=== PATIENT | male | born 1980 | race Caucasian/White ===

== ENCOUNTER → 2020-02-07 11:14 | Outpatient (CLI) | payer OTHER, SELFPAY ==
[2014-02-07 23:21] VITALS: BMI 22.4
== END ==
PROVIDERS: PCP Student in an Organized Health Care Education/Training Program; Referring Provider Dermatology; Visit Provider Dermatology
DX: L02.821 Furuncle of head [any part, except face] (principal); C44.41 Basal cell carcinoma of skin of scalp and neck; L57.8 Other skin changes due to chronic exposure to nonionizing radiation
CPT/HCPCS: 87070; 87077; 87186; 87205

== ENCOUNTER → 2021-07-23 16:10 | Outpatient (CLI) | payer OTHER, SELFPAY | PROVIDERS: PCP Student in an Organized Health Care Education/Training Program; Visit Provider Family Medicine | DX: Z23 Encounter for immunization (principal) | CPT/HCPCS: 0004A; 91300 ==

== ENCOUNTER 2022-04-23 09:55 | Emergency (ER) | payer OTHER, SELFPAY ==
[2022-04-23 09:56] VITALS: BP 122/87; PULSE 83; RESP 16; TEMP 36.6; O2SAT 100; BMI 23.5
--- NOTE | 2022-04-23 10:09 | EX.ED.DYSGE1 ---
HPI History of Present Illness Chief Complaint: Rash Detail of Chief Complaint: Back pain, chest pain, and rash Informant: patient Onset/Context/Timing Onset: Days (4) Context: Sudden Onset Timing: Continuous Quality: Sharp Location: Right chest and back Worsened by: Nothing Relieved by: Advil Narrative Narrative: Patient presents with back pain and rash. Patient states that he started having pain in his back and right chest 4 days ago. Patient states that last night he noted a rash in this area. Patient states the rash has some blisters. Patient states he has been taking Advil with some relief. Patient states his pain is sharp and constant. Patient states it is over the right upper chest and into his back. Patient states it began rather suddenly. Patient denies any fevers or chills. Patient denies any shortness of breath or cough. PFSH PFSH Medical History no medical history no medical history Home Medications valacyclovir 1 gram tablet 1,000 mg PO Q8H #21 tabs 04/23/22 [Rx Last Taken Unknown] Allergy/AdvReac Type Severity Reaction Status Date / Time No Known Allergies Allergy Verified 02/07/14 23:20 Surgical History (Updated 04/23/22 @ 10:[address] Francisco Loco DO) History of herniorrhaphy Hx of hemorrhoidectomy Social History Smoking Status: Never smoker ROS ROS ED Constitutional Constitutional ED: Denies chills or fever(s) Eyes Eyes: Denies blurry vision or change in vision ENT ENT ED: Denies rhinorrhea or sore throat Cardiovascular Cardiovascular: Reports chest pain; Denies palpitations Respiratory/Chest Respiratory/Chest: Denies cough or dyspnea Gastrointestinal Gastrointestinal: Denies nausea or vomiting Genitourinary Genitourinary ED: Denies dysuria or hematuria Musculoskeletal Musculoskeletal: Reports back pain; Denies neck pain Integumentary Reports rash; Denies abscess Neurologic Neurologic: Denies headache(s) or weakness Allergic/Immunologic Allergic/Immunologic ED: Denies mouth swelling or urticaria EXAM Physical Exam Const Vital Signs: 04/23/22 09:56 Temperature 97.8 F Temperature Source Temporal Pulse Rate 83 Respiratory Rate 16 Blood Pressure 122/87 H Blood Pressure Mean 98 Pulse Ox 100 Oxygen Delivery Method Room Air Positive well nourished and well developed General Appearance ED: well developed and NAD HEENT Reports moist mucous membranes Neck supple and no JVD Extremity normal to inspection Neuro oriented x3, CN's II-XII intact bilaterally and no sensory deficits noted Sensorium / Orientation: alert Motor Exam: strength 5/5 throughout Psych mental status grossly normal Skin skin turgor normal Skin Narrative: There is then erythematous patchy rash over the right upper back and chest along the T5 dermatome. There are areas of vesicles noted. There is no discharge or drainage. There are no petechia noted. There is no involvement of mucous membranes. There is no involvement of the palms or soles. General Skin Exam: elasticity normal MDM MDM MDM Narrative Medical decision making narrative: Patient was advised that this is shingles. Patient was given prescription for Valtrex. Patient was instructed to continue using Tylenol and ibuprofen as needed for pain. Patient was instructed to follow-up with his primary care physician in 5 to 7 days. Patient understood and was agreeable with the plan. All questions were answered. Discharge Plan Triage Chief Complaint: Rash ED Provider: Francisco Loco Dx/Rx/DC Orders Clinical Impression: Varicella zoster Instructions: ED Shingles (Herpes Zoster) Prescriptions: New valacyclovir 1 gram tablet 1,000 mg PO Q8H Qty: 21 0RF Primary Care Provider: Newton Rodrigez Referrals: Newton Rodrigez DO [Primary Care Provider] - 5-7 Days Disposition Disposition: Home, Self Care
--- NOTE | 2022-04-24 12:12 | ED.RN ---
THIS RN SPOKE WITH PT. PT NOTIFIED THAT DR [facility] VERBALIZED UNDERSTANDING
== END 2022-04-23 10:44 | disposition home or self-care (01) ==
PROVIDERS: Emergency Provider Emergency Medicine; PCP Student in an Organized Health Care Education/Training Program; Visit Provider Emergency Medicine
DX: B02.1 Zoster meningitis (principal)
CPT/HCPCS: 99282

== ENCOUNTER → 2022-06-24 | Outpatient (CLI) | payer OTHER, SELFPAY ==
--- NOTE | 2022-06-24 16:55 | STRESSREP_ITS ---
Stress Test Report Date: 06-24-2022 Procedure: Exercise tolerance test Indications: Chest pain; shortness of breath Consent: Per the patient Procedure: The patient exercised on a Nehemiah protocol for 10 minutes completing Stage III and 1 minute of Stage IV achieving a peak heart rate of 173 bpm (98% predicted maximal heart rate) with a resting blood pressure of 128/84 mmHg and a peak blood pressure 142/68 mmHg and a peak MET capacity of approximately 13 MET's. The baseline ECG demonstrated normal sinus rhythm. The peak exercise ECG demonstrated no obvious ECG changes. There was a rare PVC pretest, during exercise, and an occasional PVC during recovery. The functional capacity was considered good. The patient had chest discomfort during pretest, exercise, and recovery. The examination was discontinued secondary to chest pain. Impression: 1. Technically adequate (percent predicted maximal heart rate greater than 85%) exercise tolerance test 2. Peak exercise ECG with no obvious ECG change 3. There was a rare PVC pretest, during exercise, and an occasional PVC in recovery This note was generated with [employer] dictation software. It may contain incorrect words, spelling, and punctuation that were not noted in checking the note before signing.
== END | disposition home or self-care (01) ==
LOC: CVS 10:04
PROVIDERS: PCP Student in an Organized Health Care Education/Training Program; Referring Provider Nurse Practitioner Family; Visit Provider Nurse Practitioner Family
DX: R07.89 Other chest pain (principal); B02.9 Zoster without complications
CPT/HCPCS: 93017

== ENCOUNTER → 2023-02-24 | Outpatient (CLI) | payer OTHER, SELFPAY | END | disposition home or self-care (01) | LOC: LABSPEC 12:30 | PROVIDERS: PCP Student in an Organized Health Care Education/Training Program; Referring Provider Dermatology; Visit Provider Dermatology | DX: L02.12 Furuncle of neck (principal); L02.821 Furuncle of head [any part, except face]; L71.8 Other rosacea; D22.5 Melanocytic nevi of trunk; L82.1 Other seborrheic keratosis; L57.8 Other skin changes due to chronic exposure to nonionizing radiation; B02.29 Other postherpetic nervous system involvement; T07.XXXA Unspecified multiple injuries, initial encounter; Z71.89 Other specified counseling; Z85.828 Personal history of other malignant neoplasm of skin | CPT/HCPCS: 87070; 87077; 87186; 87205 ==